=== PATIENT | female | born 1985 | race Caucasian/White ===

== ENCOUNTER 2018-08-31 00:25 | Emergency (ER) | payer OTHER ==
[2018-08-31] MEDS ORDERED: FENTANYL CITR 100 MCG/2 ML ONE (01:31)
[2018-08-31] MEDS ORDERED: NA CHLORIDE 0.9% 2,000 ML ONE (01:32)
[2018-08-31] MEDS ORDERED: ONDANSETRON 4 MG/2 ML VIAL ONE (01:32)
[2018-08-31] MEDS ORDERED: FAMOTIDINE 20 MG/2 ML VIAL IV ONE (01:32)
[2018-08-31 01:53] LABS: Absolute Lymphocytes (CBC) 0.9 K/uL (0.7-4.9); Absolute Monocytes 1.2 K/uL (0.1-1.3); Absolute Neutrophil 11.9 K/uL (1.8-8.0); Basophils % 0.2 % (0-1.3); Eosinophils % 0.8 % (0-4.4); Hematocrit 50.3 % (36.0-45.0); Lymphocytes % 6.4 % (15.3-44.8); MCH 29.5 pg (27.0-35.0); MCV 86.6 fL (80-100); MPV 8.9 fL (7.6-11.3); Monocytes % 8.4 % (3.3-12.3); RBC Red Blood Cell Count 5.81 M/uL (3.86-4.86)
[2018-08-31 02:37] LABS: Albumin 4.2 g/dL (3.4-5.0); Bilirubin Direct 0.1 mg/dL (0-0.2); Bilirubin Total 0.5 mg/dL (0.2-1.0); Protein, Total 9.1 g/dL (6.4-8.2); Thyroid Stimulating Hormone 3.25 uIU/mL (0.360-3.740)
[2018-08-31] MEDS ORDERED: CIPROFLOXACIN 400mg IV 400 MG/200 ML BAG IV ONE (03:04)
[2018-08-31] MEDS ORDERED: METRONIDAZOLE 500mg IVPB 500 MG/100 ML BAG IV ONE (03:05)
[2018-08-31] MEDS ORDERED: NA CHLORIDE 0.9% 1,000 ML ONE (04:26)
--- NOTE | 2018-08-31 05:09 | ER ---
Nurse's Notes [facility] Name: Lizzette Barrera Age: 33 yrs Sex: Female : 1985 Arrival Date: 08/31/2018 Time: 00:27 Bed 14 Private MD: Diagnosis: Abdominal tenderness;Diarrhea, unspecified;Vomiting;Dehydration;Gastrointestinal hemorrhage, unspecified-stable;Elevated white blood cell count Presentation: 08/31 00:50 Presenting complaint: Patient states: vomiting, diarrhea, abdominal pain that started 5 cc3 hours ago. Transition of care: patient was not received from another setting of care. Onset of symptoms was August 30, 2018. Risk Assessment: Do you want to hurt yourself or someone else? Patient reports no desire to harm self or others. Initial Sepsis Screen: Does the patient meet any 2 criteria? No. Patient's initial sepsis screen is negative. Does the patient have a suspected source of infection? No. Patient's initial sepsis screen is negative. Care prior to arrival: None. 00:50 Method Of Arrival: Wheelchair cc3 00:50 Acuity: ANDRES 3 cc3 Triage Assessment: 00:50 General: Appears distressed, uncomfortable, Behavior is cooperative, anxious. Pain: cc3 Complains of pain in abdominal pain Pain currently is 10 out of 10 on a pain scale. Quality of pain is described as aching, crampy, Pain began 4 hours ago. EENT: No signs and/or symptoms were reported regarding the EENT system. Neuro: Level of Consciousness is awake, alert, obeys commands, Oriented to person, place, time, situation, Appropriate for age. Cardiovascular: Denies chest pain. Respiratory: Airway is patent Respiratory effort is even, unlabored, Respiratory pattern is regular, symmetrical. GI: Reports lower abdominal pain, upper abdominal pain, cramping, diarrhea, nausea, vomiting, since 4-5 hours ago. : No signs and/or symptoms were reported regarding the genitourinary system. Derm: No signs and/or symptoms reported regarding the dermatologic system. Musculoskeletal: Circulation, motion, and sensation intact. Range of motion: intact in all extremities. 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 - Social history:: Smoking status: Patient/guardian denies using tobacco, never smoked. - Ebola Screening: : No symptoms or risks identified at this time. Screenin:50 Abuse screen: Denies threats or abuse. Denies injuries from another. Nutritional cc3 screening: No deficits noted. Tuberculosis screening: No symptoms or risk factors identified. Fall Risk Ambulatory Aid- None/Bed Rest/Nurse Assist (0 pts). Gait- Normal/Bed Rest/Wheelchair (0 pts) Mental Status- Oriented to own ability (0 pts). Assessment: 00:50 General: see triage assessment. cc3 01:30 Reassessment: Patient and/or family updated on plan of care and expected duration. Pain cc3 level reassessed. Patient is alert, oriented x 3, equal unlabored respirations, skin warm/dry/pink. 02:13 Reassessment: Patient appears in no apparent distress at this time. Patient and/or cc3 family updated on plan of care and expected duration. Pain level reassessed. Patient is alert, oriented x 3, equal unlabored respirations, skin warm/dry/pink. 02:20 Reassessment: Patient appears in no apparent distress at this time. Patient and/or cc3 family updated on plan of care and expected duration. Pain level reassessed. Patient is alert, oriented x 3, equal unlabored respirations, skin warm/dry/pink. Patient passed watery, light red in color stool; informed Dr. Martin. Patient states feeling better. Patient states symptoms have improved. 03:30 Reassessment: Patient appears in no apparent distress at this time. Patient and/or cc3 family updated on plan of care and expected duration. Pain level reassessed. Patient is alert, oriented x 3, equal unlabored respirations, skin warm/dry/pink. 04:15 Reassessment: Patient appears in no apparent distress at this time. Patient and/or cc3 family updated on plan of care and expected duration. Pain level reassessed. Patient is alert, oriented x 3, equal unlabored respirations, skin warm/dry/pink. 05:30 Reassessment: Patient appears in no apparent distress at this time. Patient and/or cc3 family updated on plan of care and expected duration. Pain level reassessed. Patient is alert, oriented x 3, equal unlabored respirations, skin warm/dry/pink. Dr. Martin discharged the patient home with prescription given. IV cannula removed and patient left ER vitally stable and ambulatory with her mother. Patient denies pain at this time. Patient states feeling better. Patient states symptoms have improved. Vital Signs: 00:50 BP 92 / 67; Pulse 94; Resp 20 S; Temp 97.8(O); Pulse Ox 99% on R/A; Weight 86.18 kg cc3 (R); Height 5 ft. 9 in. (175.26 cm) (R); Pain 10/10; 02:30 BP 114 / 84; Pulse 81; Resp 20 S; Pulse Ox 100% on R/A; Pain 3/10; cc3 03:15 BP 118 / 78; Pulse 84; Resp 20 S; Pulse Ox 100% on R/A; cc3 04:15 BP 115 / 77; Pulse 86; Resp 20 S; Pulse Ox 99% on R/A; cc3 05:20 BP 109 / 72; Pulse 84; Resp 19 S; Pulse Ox 99% on R/A; cc3 00:50 Body Mass Index 28.06 (86.18 kg, 175.26 cm) cc3 ED Course: 00:27 Patient arrived in ED. ag3 00:38 Ga Martin MD is Attending Physician. alex 00:50 Arm band placed on right wrist. cc3 00:50 Patient has correct armband on for positive identification. Placed in gown. Bed in low cc3 position. Call light in reach. Side rails up X 1. Pulse ox on. NIBP on. 00:58 Keely Hampton is Primary Nurse. cc3 01:07 Triage completed. cc3 01:10 Inserted saline lock: 20 gauge in right antecubital area, using aseptic technique. cc3 Blood collected. 03:06 Radiology exam delayed due to lab results not completed at this time. (BUN/Creatinine) kw1 test not completed at this time. 03:29 Primary Nurse role handed off by Keely Hampton mg2 03:29 Ambrosio Veloz, RN is Primary Nurse. mg2 03:59 Radiology exam delayed due to test not completed at this time. kw1 04:[address] via wheelchair. kw1 04:25 CT Abd/Pelvis - W/Contrast In Process Unspecified. EDMS 04:26 CT completed. Patient tolerated procedure well. Patient moved back from CT. kw1 05:08 Dyllan Grover MD is Referral Physician. [facility] 05:30 No provider procedures requiring assistance completed. IV discontinued, intact, cc3 bleeding controlled, No redness/swelling at site. Pressure dressing applied. Administered Medications: 01:25 Drug: NS 0.9% 1000 ml Route: IV; Rate: 1 bolus; Site: right antecubital; cc3 03:00 Follow up: Response: No adverse reaction; IV Status: Completed infusion; IV Intake: cc3 1000ml 01:30 Drug: fentaNYL (PF) 50 mcg Route: IVP; Site: right antecubital; cc3 02:00 Follow up: Response: No adverse reaction; Pain is decreased cc3 01:33 Drug: Zofran 4 mg Route: IVP; Site: right antecubital; cc3 02:18 Follow up: Response: No adverse reaction; Nausea is decreased cc3 01:37 Drug: Pepcid 20 mg Route: IVP; Site: right antecubital; cc3 02:18 Follow up: Response: No adverse reaction; Pain is decreased cc3 01:45 Drug: NS 0.9% 1000 ml Route: IV; Rate: 1 bolus; Site: right antecubital; cc3 03:15 Follow up: Response: No adverse reaction; IV Status: Completed infusion; IV Intake: cc3 1000ml 03:00 Drug: Flagyl 500 mg Volume: 100 ml; Route: IVPB; Rate: 200 ml/hr; Infused Over: 30 mg2 mins; Site: right antecubital; 03:20 Follow up: Response: No adverse reaction; IV Status: Completed infusion; IV Intake: cc3 100ml 03:20 Drug: Cipro 400 mg Volume: 200 ml; Route: IVPB; Infused Over: 60 mins; Site: right cc3 antecubital; 04:45 Follow up: Response: No adverse reaction; IV Status: Completed infusion; IV Intake: cc3 200ml 04:15 Drug: NS 0.9% 1000 ml Route: IV; Rate: 1 bolus; Site: right antecubital; cc3 05:20 Follow up: Response: No adverse reaction; IV Status: Completed infusion; IV Intake: cc3 1000ml Intake: 03:00 IV: 1000ml; Total: 1000ml. cc3 03:15 IV: 1000ml; Total: 2000ml. cc3 03:20 IV: 100ml; Total: 2100ml. cc3 04:45 IV: 200ml; Total: 2300ml. cc3 05:20 IV: 1000ml; Total: 3300ml. cc3 Outcome: 05:08 Discharge ordered by . alex 05:30 Discharged to home ambulatory, with family. cc3 05:30 Condition: stable 05:30 Discharge instructions given to patient, family, Instructed on discharge instructions, follow up and referral plans. medication usage, Demonstrated understanding of instructions, follow-up care, medications, Prescriptions given X 4. 05:41 Patient left the ED. cc3 Signatures: Dispatcher [employer] EDMS Ga Martin MD MD cha Wilhelm, Nya kw1 Ambrosio Veloz RN RN Keely Cardenas cc3 Leslie Benz3 Corrections: (The following items were deleted from the chart) 02:40 02:20 Reassessment: Patient appears in no apparent distress at this time. Patient cc3 and/or family updated on plan of care and expected duration. Pain level reassessed. Patient is alert, oriented x 3, equal unlabored respirations, skin warm/dry/pink. Patient passed watery, light red in color stool; informed Dr. Martin. cc3
--- NOTE | 2018-08-31 05:09 | EDPHYS ---
Physician Documentation [facility] Name: Lizzette Barrera Age: 33 yrs Sex: Female : 1985 Arrival Date: 08/31/2018 Time: 00:27 Bed 14 Private MD: ED Physician Ga Martin HPI: 08/31 01:12 This 33 yrs old Female presents to ER via Wheelchair with complaints of alex Diarrhea, Vomiting. 01:12 The patient presents to the emergency department with nausea, vomiting, diarrhea, that alex is continuous, abdominal pain. Onset: The symptoms/episode began/occurred 1 day(s) ago. Possible causes: unknown. The symptoms are aggravated by nothing. The symptoms are alleviated by nothing. remaining still. Associated signs and symptoms: Pertinent positives: abdominal pain, diarrhea, nausea, vomiting. Severity of symptoms: At their worst the symptoms were mild in the emergency department the symptoms are unchanged. The patient has not experienced similar symptoms in the past. 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 - Social history:: Smoking status: Patient/guardian denies using tobacco, never smoked. - Ebola Screening: : No symptoms or risks identified at this time. ROS: 01:13 Constitutional: Negative for fever, chills, and weight loss, Eyes: Negative for injury, alex pain, redness, and discharge, ENT: Negative for injury, pain, and discharge, Neck: Negative for injury, pain, and swelling, Cardiovascular: Negative for chest pain, palpitations, and edema, Respiratory: Negative for shortness of breath, cough, wheezing, and pleuritic chest pain, Back: Negative for injury and pain, : Negative for injury, bleeding, discharge, and swelling, MS/Extremity: Negative for injury and deformity, Skin: Negative for injury, rash, and discoloration, Neuro: Negative for headache, weakness, numbness, tingling, and seizure, Psych: Negative for depression, anxiety, suicide ideation, homicidal ideation, and hallucinations, Allergy/Immunology: Negative for hives, rash, and allergies, Endocrine: Negative for neck swelling, polydipsia, polyuria, polyphagia, and marked weight changes, Hematologic/Lymphatic: Negative for swollen nodes, abnormal bleeding, and unusual bruising. 01:13 Abdomen/GI: Positive for abdominal pain, nausea and vomiting, diarrhea. Exam: 01:13 Constitutional: This is a well developed, well nourished patient who is awake, alert, alex and in no acute distress. Head/Face: Normocephalic, atraumatic. Eyes: Pupils equal round and reactive to light, extra-ocular motions intact. Lids and lashes normal. Conjunctiva and sclera are non-icteric and not injected. Cornea within normal limits. Periorbital areas with no swelling, redness, or edema. ENT: Nares patent. No nasal discharge, no septal abnormalities noted. Tympanic membranes are normal and external auditory canals are clear. Oropharynx with no redness, swelling, or masses, exudates, or evidence of obstruction, uvula midline. Mucous membranes moist. Neck: Trachea midline, no thyromegaly or masses palpated, and no cervical lymphadenopathy. Supple, full range of motion without nuchal rigidity, or vertebral point tenderness. No Meningismus. Chest/axilla: Normal chest wall appearance and motion. Nontender with no deformity. No lesions are appreciated. Cardiovascular: Regular rate and rhythm with a normal S1 and S2. No gallops, murmurs, or rubs. Normal PMI, no JVD. No pulse deficits. Respiratory: Lungs have equal breath sounds bilaterally, clear to auscultation and percussion. No rales, rhonchi or wheezes noted. No increased work of breathing, no retractions or nasal flaring. Back: No spinal tenderness. No costovertebral tenderness. Full range of motion. Skin: Warm, dry with normal turgor. Normal color with no rashes, no lesions, and no evidence of cellulitis. MS/ Extremity: Pulses equal, no cyanosis. Neurovascular intact. Full, normal range of motion. Neuro: Awake and alert, GCS 15, oriented to person, place, time, and situation. Cranial nerves II-XII grossly intact. Motor strength 5/5 in all extremities. Sensory grossly intact. Cerebellar exam normal. Normal gait. Psych: Awake, alert, with orientation to person, place and time. Behavior, mood, and affect are within normal limits. 01:13 Abdomen/GI: Inspection: distension, Bowel sounds: normal, Palpation: soft, nontender, Liver: no appreciated palpable abnormalities, Hernia: not appreciated. 04:11 Abdomen/GI: Rectal exam: is unremarkable, rectal tone Stool: guaiac positive, alex hemorrhoid(s), are not appreciated, mass, is not appreciated, swelling, is not appreciated, tenderness, is not appreciated, fecal impaction, is not appreciated, the exam is chaperoned by the nurse. Vital Signs: 00:50 BP 92 / 67; Pulse 94; Resp 20 S; Temp 97.8(O); Pulse Ox 99% on R/A; Weight 86.18 kg cc3 (R); Height 5 ft. 9 in. (175.26 cm) (R); Pain 10/10; 02:30 BP 114 / 84; Pulse 81; Resp 20 S; Pulse Ox 100% on R/A; Pain 3/10; cc3 03:15 BP 118 / 78; Pulse 84; Resp 20 S; Pulse Ox 100% on R/A; cc3 04:15 BP 115 / 77; Pulse 86; Resp 20 S; Pulse Ox 99% on R/A; cc3 05:20 BP 109 / 72; Pulse 84; Resp 19 S; Pulse Ox 99% on R/A; cc3 00:50 Body Mass Index 28.06 (86.18 kg, 175.26 cm) 3 MDM: 00:38 Patient medically screened. [facility] 01:15 Data reviewed: vital signs, nurses notes, lab test result(s), EKG, radiologic studies, alex plain films. 08/31 01:11 Order name: Basic Metabolic Panel; Complete Time: 04:09 [facility] 08/31 01:11 Order name: CBC with Diff; Complete Time: 02:24 [facility] 08/31 01:11 Order name: Creatinine for Radiology; Complete Time: 04:09 [facility] 08/31 01:11 Order name: Hepatic Function; Complete Time: 04:09 [facility] 08/31 01:11 Order name: Lipase; Complete Time: 04:09 [facility] 08/31 01:11 Order name: Urine Culture [facility] 08/31 01:11 Order name: TSH; Complete Time: 04:09 [facility] 08/31 02:24 Order name: CT Abd/Pelvis - W/Contrast [facility] 08/31 02:34 Order name: Stool Culture [facility] 08/31 02:34 Order name: Occult Blood [facility] 08/31 02:34 Order name: Fecal Leukocyte Stain [facility] 08/31 02:45 Order name: Urine Dipstick--Ancillary (enter results) ri 08/31 02:45 Order name: Urine --Ancillary (enter results) ri 08/31 01:11 Order name: IV Saline Lock; Complete Time: 01:19 [facility] 08/31 01:11 Order name: Labs collected and sent; Complete Time: 01:19 [facility] 08/31 01:11 Order name: Urine Dipstick-Ancillary (obtain specimen); Complete Time: 02:33 [facility] 08/31 01:11 Order name: Urine Test (obtain specimen); Complete Time: 02:32 [facility] Administered Medications: 01:25 Drug: NS 0.9% 1000 ml Route: IV; Rate: 1 bolus; Site: right antecubital; cc3 03:00 Follow up: Response: No adverse reaction; IV Status: Completed infusion; IV Intake: cc3 1000ml 01:30 Drug: fentaNYL (PF) 50 mcg Route: IVP; Site: right antecubital; cc3 02:00 Follow up: Response: No adverse reaction; Pain is decreased cc3 01:33 Drug: Zofran 4 mg Route: IVP; Site: right antecubital; cc3 02:18 Follow up: Response: No adverse reaction; Nausea is decreased cc3 01:37 Drug: Pepcid 20 mg Route: IVP; Site: right antecubital; cc3 02:18 Follow up: Response: No adverse reaction; Pain is decreased cc3 01:45 Drug: NS 0.9% 1000 ml Route: IV; Rate: 1 bolus; Site: right antecubital; cc3 03:15 Follow up: Response: No adverse reaction; IV Status: Completed infusion; IV Intake: cc3 1000ml 03:00 Drug: Flagyl 500 mg Volume: 100 ml; Route: IVPB; Rate: 200 ml/hr; Infused Over: 30 mg2 mins; Site: right antecubital; 03:20 Follow up: Response: No adverse reaction; IV Status: Completed infusion; IV Intake: cc3 100ml 03:20 Drug: Cipro 400 mg Volume: 200 ml; Route: IVPB; Infused Over: 60 mins; Site: right cc3 antecubital; 04:45 Follow up: Response: No adverse reaction; IV Status: Completed infusion; IV Intake: cc3 200ml 04:15 Drug: NS 0.9% 1000 ml Route: IV; Rate: 1 bolus; Site: right antecubital; cc3 05:20 Follow up: Response: No adverse reaction; IV Status: Completed infusion; IV Intake: cc3 1000ml Disposition: 08/31/18 05:08 Discharged to Home. Impression: Abdominal tenderness, Diarrhea, unspecified, Vomiting, Dehydration, Gastrointestinal hemorrhage, unspecified - stable, Elevated white blood cell count. - Condition is Stable. - Discharge Instructions: Abdominal Pain, Adult, Food Choices to Help Relieve Diarrhea, Adult, Dehydration, Adult, Diarrhea, Adult, Gastrointestinal Bleeding, Nausea and Vomiting, Adult, Nausea and Vomiting, Adult, [id number], Abdominal Pain, Adult, [id number], Diarrhea, Adult, [id number]. - Prescriptions for Bentyl 20 mg Oral Tablet - take 1 tablet by ORAL route every 6 hours As needed; 20 tablet. Pepcid 20 mg Oral Tablet - take 1 tablet by ORAL route every 12 hours for 10 days; 20 tablet. Zofran 4 mg Oral Tablet - take 1 tablet by ORAL route every 12 hours As needed; 20 tablet. Cipro 500 mg Oral Tablet - take 1 tablet by ORAL route every 12 hours for 7 days; 14 tablet. - Medication Reconciliation Form, Thank You Letter, Antibiotic Education, Prescription Opioid Use form. - Follow up: Private Physician; When: 2 - 3 days; Reason: Recheck today's complaints, Continuance of care, Re-evaluation by your physician. Follow up: Dyllan Grover; When: 2 - 3 days; Reason: Recheck today's complaints, Re-evaluation by your physician. - Problem is new. - Symptoms have improved. Signatures: Dispatcher [employer] EDMS Ga Matrin MD MD cha Gardose, Michele, RN RN mg2 Cordel, Charlene cc3 Corrections: (The following items were deleted from the chart) 05:41 05:08 08/31/2018 05:08 Discharged to Home. Impression: Abdominal tenderness; Diarrhea, cc3 unspecified; Vomiting; Dehydration; Gastrointestinal hemorrhage, unspecified - stable; Elevated white blood cell count. Condition is Stable. Discharge Instructions: Abdominal Pain, Adult, Food Choices to Help Relieve Diarrhea, Adult, Dehydration, Adult, Diarrhea, Adult, Gastrointestinal Bleeding, Nausea and Vomiting, Adult, Nausea and Vomiting, Adult, [id number], Abdominal Pain, Adult, [id number], Diarrhea, Adult, [id number]. Prescriptions for Bentyl 20 mg Oral Tablet - take 1 tablet by ORAL route every 6 hours As needed; 20 tablet, Pepcid 20 mg Oral Tablet - take 1 tablet by ORAL route every 12 hours for 10 days; 20 tablet, Zofran 4 mg Oral Tablet - take 1 tablet by ORAL route every 12 hours As needed; 20 tablet, Cipro 500 mg Oral Tablet - take 1 tablet by ORAL route every 12 hours for 7 days; 14 tablet. and Forms are Medication Reconciliation Form, Thank You Letter, Antibiotic Education, Prescription Opioid Use. Follow up: Private Physician; When: 2 - 3 days; Reason: Recheck today's complaints, Continuance of care, Re-evaluation by your physician. Follow up: Dyllan Grover; When: 2 - 3 days; Reason: Recheck today's complaints, Re-evaluation by your physician. Problem is new. Symptoms have improved. alex
[2018-08-31 05:40] LABS: Urine Specific Gravity >1.030 (1.005-1.030)
[2018-08-31 05:41] LABS: Urine Blood NEGATIVE (NEG); Urine Glucose NEGATIVE (NEG); Urine Protein 2+ (NEG)
[2018-08-31 05:53] VITALS: TEMP 97.8
[2018-08-31 05:55] VITALS: O2SAT 100
[2018-08-31 05:56] VITALS: BP 118/78
--- NOTE | 2018-08-31 11:14 | RAD REPORT ---
EXAM DESCRIPTION: CT - Abdomen Pelvis W Contrast - 08/31/2018 7:01 am CLINICAL HISTORY: Abdominal pain, vomiting and diarrhea, history of thyroid cancer and irritable bow el syndrome. A preliminary report was provided at the time of the study and reviewed prior to final report. COMPARISON: CT study5 2012 TECHNIQUE: Biphasic, helical CT imaging of the abdomen and pelvis was performed following 100 ml non -ionic IV contrast. Oral contrast was given. All CT scans are performed using dose optimization technique as appropriate and may include automated exposure control or mA/KV adjustment according to patient size. FINDINGS: No suspicious findings in the lung bases. The liver, spleen, and pancreas show no suspicious findings. Gallbladder and biliary tree are also wi thout suspicious finding. Liver attenuation is borderline fatty infiltrated. Symmetric renal function is seen with no hydronephrosis or suspicious renal mass. No pyelonephritis o r acute renal parenchymal process. No urinary bladder abnormality. Uterus and ovaries within normal l imits. No dilated bowel loops or bowel wall thickening. Fluid filled large and small bowel are present. The appendix is normal. No free air, free fluid or inflammatory stranding. No hernia, mass or bulky lymp hadenopathy. No adrenal abnormality. No suspicious bony findings. IMPRESSION: No appendicitis, obstruction, free air or other surgically emergent finding. Fluid filled large and small bowel loops are nonspecific but can indicate a nonspecific enteritis.
== END 2018-08-31 05:41 | disposition home or self-care (01) ==
LOC: ER 00:25
DX: E86.0 Dehydration (principal); R19.7 Diarrhea, unspecified; K92.2 Gastrointestinal hemorrhage, unspecified; D72.829 Elevated white blood cell count, unspecified; R10.819 Abdominal tenderness, unspecified site; Z88.5 Allergy status to narcotic agent; Z85.850 Personal history of malignant neoplasm of thyroid
CPT/HCPCS: 36415; 74177; 80048; 80076; 81003; 81025; 83690; 84443; 85025; 87045; 87046; 87086; 87088; 89055; 96361; 96365; 96367; 96375; 99284; J0744; J2405; J3010; J7030; Q9967